=== PATIENT | male | born 1955 | race Caucasian/White ===

== ENCOUNTER 2018-04-25 23:00 | Emergency (ER) | payer OTHER ==
[2018-04-25] MEDS ORDERED: Sodium Chloride 0.9% 10 ML Syringe FLUSH PRN (23:51)
[2018-04-26 00:27] LABS: ANION GAP 10.8; CHLORIDE,CL 103 mmol/L (101-111); SODIUM,NA 139 mmol/L (135-145)
[2018-04-26] MEDS ORDERED: Furosemide 40 MG/4 ML VIAL IVPUSH ONE (00:43)
--- NOTE | 2018-04-26 01:03 | EDM.PDOC ---
ED HPI GENERAL MEDICAL PROBLEM - General Chief Complaint: Lower Extremity Injury/Pain Stated Complaint: LEFT FOOT SWOLLEN [id number] Time Seen by Provider: 04/25/18 23:20 Source of Information: Reports: Patient History Limitations: Reports: No Limitations - History of Present Illness INITIAL COMMENTS - FREE TEXT/NARRATIVE: she comes emergency department today with complaints of swelling in his lower extremities. Patient is an over the road planning engineer who over the past few days has noticed increased swelling of his lower extremities primarily more on the left.Today the left ankle is quite a bit more swollen and red and painful with ambulation. He does not take any diuretics. Typically when he goes to bed at night and wakes up in the morning his pedal edema has resolved and is not on this over the past couple days. He has no chest pain shortness of breath or difficulty breathing. He has no history of anticoagulation problems. He has no history of coag problems. He does have a history of an ID which was he reports is silent he never had any symptomatology with it. He denies any pain in his calf or thigh. Left Ankle Pain Score (Numeric/FACES): 2 - Related Data Allergies Allergy/AdvReac Type Severity Reaction Status Date / Time No Known Allergies Allergy Verified 04/25/18 23:06 Home Meds: Home Meds Aspirin [Adult Low Dose Aspirin EC] 81 mg PO DAILY 04/25/18 [History] Carvedilol 6.25 mg PO BID 04/25/18 [History] Clopidogrel [Plavix] 75 mg PO DAILY 04/25/18 [History] Famotidine 20 mg PO BID 04/25/18 [History] Fish Oil/[place]-3 Fatty Acids [Fish Oil 1,000 MG] 1,000 mg PO DAILY 04/25/18 [ History] Losartan Potassium [Cozaar] 100 mg PO DAILY 04/25/18 [History] atorvaSTATin [Lipitor] 40 mg PO DAILY 04/25/18 [History] buPROPion [buPROPion XL] 150 mg PO BID 04/25/18 [History] metFORMIN [Glucophage XR] 1,000 mg PO BID 04/25/18 [History] Past Medical History Cardiovascular History: Reports: High Cholesterol, Hypertension, ID, Stents Respiratory History: Reports: Sleep Apnea Endocrine/Metabolic History: Reports: Diabetes, Type II - Infectious Disease History Infectious Disease History: Reports: MRSA - Past Surgical History GI Surgical History: Reports: Appendectomy, Colonoscopy Social & Family History - Tobacco Use Smoking Status *Q: Current Every Day Smoker Years of Tobacco use: 45 Packs/Tins Daily: 0.5 - Caffeine Use Caffeine Use: Reports: Soda - Recreational Drug Use Recreational Drug Use: No Review of Systems - Review of Systems Review Of Systems: ROS reveals no pertinent complaints other than HPI. ED EXAM, GENERAL - Physical Exam Exam: See Below Exam Limited By: No Limitations General Appearance: Alert, WD/WN Head: Atraumatic Neck: Normal Inspection Respiratory/Chest: No Respiratory Distress, Lungs Clear, Normal Breath Sounds, No Accessory Muscle Use, Chest Non-Tender Cardiovascular: Normal Peripheral Pulses, Regular Rate, Rhythm, No JVD, No Murmur, No Rub Peripheral Pulses: 2+: Posterior Tibial (L), Posterior Tibial (R), Dorsalis Pedis (L), Dorsalis Pedis (R) GI/Abdominal: Normal Bowel Sounds, Soft, Non-Tender, No Distention (Male) Exam: Deferred Rectal (Males) Exam: Deferred Back Exam: Normal Inspection, Full Range of Motion Extremities: Pedal Edema (he has bilateral pedal edema quite a bit more on the left than the right. There is a small amount of mild erythema around the left ankle. There is no breaks in the skin. The edema is quite pitting as well. It is not warm hot has normal CMS. Generalized tenderness throughout the left lower extremity as well as the right lower extremity.) Neurological: Alert, Oriented, CN II-XII Intact, Normal Reflexes, No Motor/ Sensory Deficits Psychiatric: Normal Affect Skin Exam: Warm, Dry, Intact, Normal Color, No Rash Lymphatic: No Adenopathy EKG INTERPRETATION EKG Date: 04/26/18 Time: 00:01 Rhythm: NSR Rate (Beats/Min): 68 [place]: Normal P-Wave: Present QRS: Normal ST-T: Normal QT: Normal Comparison: NA - No Prior EKG Course - Vital Signs Last Recorded V/S: Last Vital Signs Temp 36.2 C 04/26/18 00:52 Pulse 65 04/26/18 00:52 Resp 18 04/26/18 00:52 BP 168/72 H 04/26/18 00:52 Pulse Ox 97 04/26/18 00:52 - Orders/Labs/Meds Orders: Active Orders 24 hr Category Date Time Status EKG 12 Lead [EKG Documentation Completion] [RC] URGENT Care 04/25/18 23:51 Active Peripheral IV Care [RC] . DIRECTED Care 04/25/18 23:51 Active Peripheral IV Insertion Adult [OM.PC] Stat Oth 04/25/18 23:51 Ordered Labs: Laboratory Tests 04/25/18 04/25/18 04/25/18 Range/Units 00:01 00:01 00:01 WBC 12.2 H (5.0-10.0) 10^3/uL RBC 5.21 (4.6-6.2) 10^6/uL Hgb 15.2 (14.0-18.0) g/dL Hct 46.3 (40.0-54.0) % MCV 88.9 (80-100) fL MCH 29.2 (27.0-34.0) pg MCHC 32.8 L (33.0-35.0) g/dL Plt Count 229 (150-450) 10^3/uL Neut % (Auto) 65.6 (42.2-75.2) % Lymph % (Auto) 21.9 (20.5-50.1) % [place] % (Auto) 8.5 H (2-8) % Eos % (Auto) 3.8 H (1.0-3.0) % Baso % (Auto) 0.2 (0.0-1.0) % D-Dimer, Quantitative < 100 (0-400) ng/mL Sodium 139 (135-145) mmol/L Potassium 3.8 (3.6-5.0) mmol/L Chloride 103 (101-111) mmol/L Carbon Dioxide 29.0 (21.0-31.0) mmol/L Anion Gap 10.8 BUN 19 H (7-18) mg/dL Creatinine 1.0 (0.6-1.3) mg/dL Est Cr Clr Drug Dosing 80.10 mL/min Estimated GFR (MDRD) > 60 BUN/Creatinine Ratio 19.00 Glucose 100 (74-105) mg/dL Calcium 9.2 (8.4-10.2) mg/dl Total Bilirubin 0.7 (0.2-1.0) mg/dL AST 24 (10-42) IU/L ALT 26 (10-60) IU/L Alkaline Phosphatase 91 (42-121) IU/L Troponin I 0.02 (0.00-0.02) ng/ml B-Natriuretic Peptide 63 (0-100) pg/ml Total Protein 7.5 (6.7-8.2) g/dl Albumin 4.1 (3.2-5.5) g/dl Globulin 3.4 Albumin/Globulin Ratio 1.21 Meds: Medications Discontinued Medications Generic Name Dose Route Start Last Admin Trade Name Ama PRN Reason Stop Dose Admin Furosemide 40 mg 04/26/18 00:43 04/26/18 00:48 Lasix IVPUSH 04/26/18 00:44 40 mg NOW ONE Administration Sodium Chloride 10 ml 04/25/18 23:51 Saline Flush FLUSH ASDIRECTED PRN Keep Vein Open - Radiology Interpretation Free Text/Narrative:: x-ray of the chest per radiology. No active disease of the chest. - Re-Assessments/Exams Free Text/Narrative Re-Assessment/Exam: 04/26/18 21:28 his laboratory evaluation is rather unremarkable. His d-dimer is negative as well. His chest x-ray and EKG is negative. The patient was initially worried about a blood clot but I really feel that this is justpedal edema which may be caused from right sided failure but his enzymes for his heart and his EKG are normal. We will give him some Lasix for a short course over the next couple of days and he is to recheck with primary care. He is understanding of this and his questions were answered. Departure - Departure Time of Disposition: 00:57 Disposition: Home, Self-Care 01 Clinical Impression: Pedal edema - Discharge Information Instructions: Edema, [id number] Referrals: PCP,Not In Area [Primary Care Provider] - Forms: ED Department Discharge Additional Instructions: Continue medication as previous. Lasix 20mg a day for the next 3 days. RX given to the patient. Compression stockings daily especially when long sedentary days. Return to the ED if new or worsening symptoms. Follow up primary care in a week. - My Orders Last 24 Hours: My Active Orders 04/25/18 23:51 EKG 12 Lead [EKG Documentation Completion] [RC] URGENT Peripheral IV Care [RC] . DIRECTED Peripheral IV Insertion Adult [OM.PC] Stat - Assessment/Plan Last 24 Hours: My Active Orders 04/25/18 23:51 EKG 12 Lead [EKG Documentation Completion] [RC] URGENT Peripheral IV Care [RC] . DIRECTED Peripheral IV Insertion Adult [OM.PC] Stat Assessment:: Pedal edema, ? Right heart failure. Plan: ontinue medication as previous. Lasix 20mg a day for the next 3 days. RX given to the patient. Compression stockings daily especially when long sedentary days. Return to the ED if new or worsening symptoms. Follow up primary care in a week.
--- NOTE | 2018-04-27 18:40 | EKG ---
04/26/2018 - SUGEY MENDEZ - TIME OF SERVICE: 0107 FINDINGS: 1. EKG shows accelerated junctional rhythm. 2. 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 [facility] /[id number]
== END 2018-04-26 01:10 | disposition home or self-care (01) ==
LOC: DL.ED 23:00
DX: R60.0 Localized edema (principal); F17.210 Nicotine dependence, cigarettes, uncomplicated; I10 Essential (primary) hypertension; E78.00 Pure hypercholesterolemia, unspecified; E11.9 Type 2 diabetes mellitus without complications; Z79.84 Long term (current) use of oral hypoglycemic drugs; Z79.899 Other long term (current) drug therapy; Z79.82 Long term (current) use of aspirin
CPT/HCPCS: 36415; 71046; 80053; 83880; 84484; 85025; 85379; 93005; 96374; 99284; J1940